=== PATIENT | female | born 1995 | race Two or more races ===

== ENCOUNTER 2017-07-18 15:54 | Emergency (ER) | payer MEDICAID | END 2017-07-18 16:41 | disposition left against medical advice (07) | LOC: ERS 15:54 | DX: Z53.21 Procedure and treatment not carried out due to patient leaving prior to being seen by health care provider (principal) ==

== ENCOUNTER 2017-10-12 14:34 | Day surgery (SDC) | payer SELFPAY ==
[2017-10-12 15:11] VITALS: BP 99/58; TEMP 98.6; BMI 21.1
[2017-10-12 16:41] LABS: Bilirubin Negative (Negative); Blood, Urine Negative (Negative); Clarity CLEAR (Clear); Glucose, Urine (Dipstick) Negative (Negative); Leukocyte Small (Negative); Nitrite Negative (Negative); Protein, Urine (Dipstick) Negative (Neg-Trace); Specific Gravity, Urine 1.008 (1.002-1.036)
[2017-10-12 16:43] LABS: Bacteria/HPF None Seen HPF (None Seen); Hyaline Casts/LPF 0-3 HYALINE CAST LPF (0-3 Hyaline); Pathc Cast-AUWi Flag 0.29 (0-2.49); RBC/HPF 0-3 HPF (0-3); Squamous Epithelial 0-3 HPF (0-3); WBC/HPF 0-3 HPF (0-3)
--- NOTE | 2017-10-12 16:46 | PDOC.LDHP ---
Labor and Delivery H&P Chief complaint: contractions HPI: 21 y/o at approximately 25 weeks by LMP. [facility] not [facility] Last she was "in and out of the hospital for 5 months" before delivering a month early. She spent the "last 3 months in the hospital to stop labor" at the [facility]. She reports contractions starting last night occurring every 3 minutes. Denies VB, LOF, UTI symptoms or other concerns. She had sex last night. ROS neg for HEENT, CV, pulm, GI, , neuro, psych, skin, musculoskeletal, or constitutional symptoms other than mentioned above. OB History Details: 1st was full term, 2nd delivered 1 month early, . Spent "3 months" in the hospital due to PTL. 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 Current medications: none Previous surgical history: none Allergies/Adverse Reactions: Allergies Allergy/AdvReac Type Severity Reaction Status Date / Time oseltamivir [From Tamiflu] Allergy Verified 10/12/17 15:13 Social history: tobacco use (1 pack per 3 days), drug use (Methamphetamines 1 week ago) - Physical Exam Vital signs reviewed and normal: yes General: NAD, resting Lungs: nonlabored breathing Abdomen: gravid Extremeties: no edema FHT: category 1 (FHTs 150s) [place] contractions every: None - Vaginal Exam cm dilated: 0 (thick, posterior) Effacement: 0% Station: -3 - Assessment 21 y/o at 21w1d by today's formal ultrasound with no e/o PTL. status reassuring. - Plan -: D/c home with precautions. Advised to establish care MARY and reiterated importance due to history. Patient voiced understanding. Will call patient with results if treatment is needed for pending GC/CT and VP3 results.
[2017-10-12 16:52] LABS: Amphetamine Detected (NotDetected); Barbiturates Screen Not Detected (NotDetected); Benzodiazepine Screen Not Detected (NotDetected); Cocaine Metabolite Screen Not Detected (NotDetected); Medtox Control Line Valid? VALID (VALID); Medtox Reader # READER 4; Methadone Not Detected (NotDetected); Methamphetamine Detected (NotDetected); Opiate Screen Not Detected (NotDetected); Oxycodone Screen Not Detected (NotDetected); Phencyclidine (PCP) Not Detected (NotDetected); THC/Cannabinoid Screen Not Detected (NotDetected); Tricyclic Screen Not Detected (NotDetected)
--- NOTE | 2017-10-12 17:50 | ULT ---
ULTRASOUND OBSTETRICAL COMPLETE: 10/12/17 HISTORY: 21-year-old female with no care. FINDINGS: number: [place]. lie: Variable. Maternal cervix: 3 cm in length and closed. Placenta: Posterior. No placenta previa. Amniotic fluid volume: RAYMOND 12 cm. heart rate: 149 bpm The following anatomy is visualized, with no evidence of anomalies: Head, lateral ventricles, cerebellum, nose and lips, spine, upper limbs, lower limbs, four chamber he art, umbilical cord, cord insertion, stomach, kidneys, and bladder. biometry: Head circumference (HC): 18.9 cm 21w 1d Biparietal diameter (BPD): 5.3 cm 22w 0d Abdominal circumference (AC): 15.8 cm 20w 6d Femur length (FL): 3.3 cm 20w 3d Average ultrasound age (AUA): 21w 1d Estimated date of delivery (ADALBERTO): 02/21/18 Last menstrual period (LMP): 04/14/17 Gestational age by LMP: 25w 6d Estimated weight (EFW): 377g +/- 56g (0 lb. 13 oz +/- 2 oz.) IMPRESSION: 1. Live second trimester intrauterine gestation. 2. Estimated gestational age of 21 weeks, 1 days. 3. Variable lie. 4. No anatomical abnormalities. [place] [] POS: CELENA
[2017-10-13 22:56] LABS: Chlamydia by PCR Not Detected (NotDetected); GC by PCR Not Detected (NotDetected)
--- NOTE | 2017-10-14 06:47 | PDOC.EVN ---
Event Note - Event Note Event Note: 10/14/17 @0645: Post discharge lab check: GC and Chl are negative. VP3 with BV/ yeast. Will contact patient at stated phone number ([phone]) for Flagyl.
--- NOTE | 2017-10-14 08:00 | PDOC.EVN ---
Event Note - Event Note Event Note: Follow up after discharge: Spoke with family member. Did not give out specific health information regarding the patient to protect HPI. Patient was "sleeping". I received a phone number to [facility] in [place] and I called in Dwight and Francoise for her at [phone] on 10/14/17.
== END 2017-10-12 17:45 | disposition home or self-care (01) ==
LOC: L&D/OP 14:34
PROVIDERS: ATTEND Obstetrics & Gynecology
DX: O47.02 False labor before 37 completed weeks of gestation, second trimester (principal); O09.212 Supervision of pregnancy with history of pre-term labor, second trimester; O99.512 Diseases of the respiratory system complicating pregnancy, second trimester; J45.909 Unspecified asthma, uncomplicated; O99.352 Diseases of the nervous system complicating pregnancy, second trimester; G40.409 Other generalized epilepsy and epileptic syndromes, not intractable, without status epilepticus; O99.332 Smoking (tobacco) complicating pregnancy, second trimester; F17.210 Nicotine dependence, cigarettes, uncomplicated; O99.322 Drug use complicating pregnancy, second trimester; F15.90 Other stimulant use, unspecified, uncomplicated; Z3A.25 25 weeks gestation of pregnancy; Z88.8 Allergy status to other drugs, medicaments and biological substances
CPT/HCPCS: 76805; 80306; 81001; 87480; 87491; 87510; 87591; 87660; 99284